=== PATIENT | male | born 1935 | race Caucasian/White ===

== ENCOUNTER 2018-12-06 16:25 | Inpatient (IN) | payer OTHER | END 2018-12-09 13:20 | disposition home health service (06) | LOC: TELE-WESTW 12-07 00:14 → ER 16:25 → TELE 23:40 → TELE-WESTW 23:51 | DX: N39.0 Urinary tract infection, site not specified (principal); E87.1 Hypo-osmolality and hyponatremia; M54.40 Lumbago with sciatica, unspecified side; E11.65 Type 2 diabetes mellitus with hyperglycemia; N40.0 Benign prostatic hyperplasia without lower urinary tract symptoms; M54.42 Lumbago with sciatica, left side; I10 Essential (primary) hypertension; Z79.82 Long term (current) use of aspirin ==